=== PATIENT | female | born 1955 | race Caucasian/White ===

== ENCOUNTER 2018-02-07 15:10 | Emergency (ER) | payer OTHER ==
[2018-02-07] MEDS ORDERED: Ondansetron HCl/PF 4 MG/2 ML Vial ONE (16:11)
[2018-02-07] MEDS ORDERED: Ketorolac Tromethamine 30 MG/ML VIAL ONE (16:11)
[2018-02-07 16:18] LABS: #Lymphocytes 1.1 thou/uL (1.20-3.40); #Monocytes 0.7 thou/uL (0.11-0.59); #Neutrophils 13.4 thou/uL (1.40-6.50); %Basophils 0.3 % (0.0-1.0); %Eosinophils 0.2 % (0.0-10.0); %Lymphocytes 7.3 % (21.0-51.0); %Monocytes 4.5 % (0.0-10.0); %Neutrophils 87.7 % (42.0-75.0); Hemoglobin 14.8 g/dL (12.0-16.0); Mean Corpuscular HGB CONC 33.3 g/dL (32.0-36.0); Mean Corpuscular Hemoglobin 31.2 pg (27.0-31.0); Mean Corpuscular Volume 93.8 fL (78.0-98.0); Mean Platelet Volume 7.4 fL (7.4-10.4); Platelet Count 279 thou/uL (130-400); RBC Distribution Width 11.2 % (11.5-14.5); Red Blood Cell (RBC) Count 4.75 mill/uL (4.20-5.40); White Blood Cell (WBC) Count 15.3 thou/uL (4.8-10.8)
[2018-02-07 16:18] LABS: Bilirubin Negative (Negative); Blood, Urine Small (Negative); Clarity CLEAR (Clear); Glucose, Urine (Dipstick) Negative (Negative); Leukocyte Moderate (Negative); Nitrite Negative (Negative); Protein, Urine (Dipstick) Trace mg/dL (Neg-Trace); Specific Gravity, Urine 1.008 (1.002-1.036); Urobilinogen 0.2 mg/dL (0.2-1.0); pH, Urine 7.5 (5.0-9.0)
[2018-02-07 16:19] LABS: Bacteria/HPF None Seen HPF (None Seen); Hyaline Casts/LPF 4-6 HYALINE CAST LPF (0-3 Hyaline); Pathc Cast-AUWi Flag 0.72 (0-2.49); Squamous Epithelial 0-3 HPF (0-3); WBC/HPF 21-50 HPF (0-3)
[2018-02-07 16:42] LABS: CKMB 1.4 ng/mL (0-6.6); Troponin I Less than 0.010 ng/mL (< 0.028)
[2018-02-07 17:34] LABS: ALT (SGPT) 16 U/L (8-55); AST (SGOT) 23 U/L (5-34); Alkaline Phosphatase 70 U/L (40-150); Anion Gap 19 mmol/L (10-20); BUN (Urea Nitrogen) 18 mg/dL (9.8-20.1); Bilirubin, Total 0.6 mg/dL (0.2-1.2); Calc. Creatinine Clearance 0 mL/min (70-130); Calcium 10.9 mg/dL (7.8-10.44); Carbon Dioxide 24 mmol/L (23-31); Chloride 101 mmol/L (98-107); Estimated GFR-MDRD 42; Glucose 131 mg/dL (80-115); Potassium 3.7 mmol/L (3.5-5.1); Sodium 140 mmol/L (136-145)
--- NOTE | 2018-02-07 17:40 | CT ---
NONCONTRAST CT ABDOMEN AND PELVIS 02/07/18 HISTORY: Left lower quadrant pain radiating to back. History of kidney stones and chronic constipation. COMPARISON: None available. FINDINGS: There is a large staghorn type renal calculus involving the left kidney with large calculus in the le ft renal pelvis which grossly measures 3.3 cm x 3.1 cm in maximal axial dimensions. Several additiona l smaller calculi are also seen with multiple calculi which coalesce to form a larger calculus in the inferior pole left kidney which measures 1.9 cm x 1.8 cm. There is mild hydronephrosis involving the superior pole of the left kidney. There is perinephric stranding seen on the left with small amount of fluid seen anterior to the left kidney. No left ureteral calculus is appreciated. Calcifications a re seen along the course of the left ureter thought to be related to gonadal vein calcifications as o pposed to ureteral calculi. There is a prominent calculus within the right renal pelvis measuring 2 c m x 1.1 cm with additional smaller inferior pole right renal calculi. There is mild caliectasis invol ving the superior pole right renal calices. There is mild dilatation of the proximal right ureter, wi th transition near the level of the sacrum, but no ureteral calculus is appreciated. The exact etiolo gy for the mild dilatation right ureter is uncertain. There is an approximately 1.9 cm hypodense lesion seen within the inferior aspect posterior segment o f the right hepatic lobe which may represent a small right hepatic lobe cyst. There is evidence of mild bibasilar atelectasis. Lack of intravenous contrast limits sensitivity for evaluation of the parenchymal organs; however, th e spleen, pancreas, bilateral adrenal glands, and urinary bladder demonstrate a grossly normal nonenh anced CT appearance. There is a lobulated appearance of the fundus of the uterus with suggestion of an exophytic isodense mass at the superior left lateral aspect of the fundus of the uterus measuring 2.8 cm likely related to a uterine fibroid. There is adjacent small calcification present. The appendix is visualized and normal in caliber. There are mild degenerative changes seen in the lower lumbar spine. IMPRESSION: 1. Obstructing large staghorn calculus in the left renal pelvis with dilatation of the left alex al pelvis due to the large calculus and resultant mild hydronephrosis of the superior pole left renal collecting system. There are several additional calculi seen within the inferior pole left renal col lecting system with larger calculus which may represent coalescence of multiple smaller calculi seen within the inferior pole calyx. There is associated perinephric stranding seen with small amount of f luid. Infection on the left cannot be entirely excluded based on this examination. 2. Nonobstructing right renal calculi with prominent calculus in the right renal pelvis which do es result in mild caliectasis without overt hydronephrosis. 3. Hypodense lesion right hepatic lobe probably related to hepatic cyst. 4. Small hiatal hernia. 5. No CT evidence of appendicitis. POS: [facility]
== END 2018-02-07 18:35 | disposition home or self-care (01) ==
LOC: ERS 15:10
DX: N13.2 Hydronephrosis with renal and ureteral calculous obstruction (principal); E78.5 Hyperlipidemia, unspecified; Z79.899 Other long term (current) drug therapy
CPT/HCPCS: 74176; 80053; 81003; 81015; 82553; 83690; 84484; 85025; 87086; 96361; 96374; 96375; 96376; J1885; J2270; J2405